=== PATIENT | male | born 1965 ===

== ENCOUNTER 2016-07-23 21:22 | Emergency (ER) | payer MEDICAID ==
[2016-07-23 22:06] VITALS: BP 112/73; PULSE 92; RESP 20; TEMP 98.7; O2SAT 97
--- NOTE | 2016-07-23 23:39 | C.PDOC ---
History Of Present Illness 50 year old patient, with a past medical history of hyperlipidemia, presents to the ED complaining of sore throat and productive cough for the last few days. Patient also notes he has pain when swallowing. Patient denies any fever, vomiting, or abdominal pain. Time Seen by Provider: 07/23/16 23:04 Chief Complaint (Nursing): Flu-like Symptoms History Per: Patient History/Exam Limitations: no limitations Onset/Duration Of Symptoms: Other (1 week) Current Symptoms Are (Timing): Still Present Location Of Pain: Throat Sick Contacts (Context): None Associated Symptoms: Sore Throat, Cough Severity: Mild Pain Scale Rating Of: 3 Recent travel outside of the [place]: No Past Medical History Reviewed: Historical Data, Nursing Documentation, Vital Signs Vital Signs: Last Vital Signs Temp 98.7 F 07/23/16 21:58 Pulse 92 H 07/23/16 21:58 Resp 20 07/23/16 21:58 BP 112/73 07/23/16 21:58 Pulse Ox 97 07/23/16 23:53 - Medical History PMH: Hyperlipidemia Family History: States: Unknown Family Hx - Social History Hx Alcohol Use: No Hx Substance Use: No - Immunization History Hx Influenza Vaccination: Yes Review Of Systems Except As Marked, All Systems Reviewed And Found Negative. Constitutional: Negative for: Fever ENT: Positive for: Throat Pain Respiratory: Positive for: Cough Gastrointestinal: Negative for: Vomiting, Abdominal Pain Physical Exam - Physical Exam Appears: Non-toxic, No Acute Distress Skin: Warm, Dry Head: Atraumatic, Normacephalic Eye(s): bilateral: Normal Inspection, PERRL, EOMI Ear(s): Bilateral: Normal Nose: Normal Oral Mucosa: Moist Throat: Normal, No Erythema, No Exudate Neck: Normal ROM, Supple Cardiovascular: Rhythm Regular Respiratory: Normal Breath Sounds, No Rales, No Rhonchi, No Wheezing ED Course And Treatment O2 Sat by Pulse Oximetry: 97 (RA) Pulse Ox Interpretation: Normal Progress Note: Patient is resting comfortably with no wheezing, chest pain, or retractions. Oxygen saturation is at 97%. Patient is alert and oriented x 3. Patient was advised to follow up with PMD. Return if symptoms worsen. Disposition Counseled Patient/Family Regarding: Diagnosis, Need For Followup - Disposition Referrals: PMD, your doctor [Other] Disposition: HOME/ ROUTINE Disposition Time: 23:37 Condition: STABLE Additional Instructions: Increase PO fluids Take meds as directed Follwo up with PMD Return to ER if worse Prescriptions: Benzonatate [Tessalon Perles] 100 mg PO TID #20 sgl Azithromycin [Zithromax] 250 mg PO DAILY #6 tab Cetirizine HCl [Zyrtec] 10 mg PO DAILY #20 capsule Instructions: Acute Bronchitis (ED) - Clinical Impression Clinical Impression: Bronchitis - PA / RESPIRATORY SCIENTIST / Resident Statement MD/DO has reviewed & agrees with the documentation as recorded. - Scribe Statement The provider has reviewed the documentation as recorded by the Scribe Zarina Mai All medical record entries made by the Scribe were at my direction and personally dictated by me. I have reviewed the chart and agree that the record accurately reflects my personal performance of the history, physical exam, medical decision making, and the department course for this patient. I have also personally directed, reviewed, and agree with the discharge instructions and disposition.
== END 2016-07-23 23:42 | disposition home or self-care (01) ==
LOC: C.ER 21:22
DX: J40 Bronchitis, not specified as acute or chronic (principal)

== ENCOUNTER 2016-12-16 15:35 | Emergency (ER) | payer MEDICAID ==
[2016-12-16 15:45] VITALS: TEMP 98.4; O2SAT 97
[2016-12-16] MEDS ORDERED: Sodium Chloride 0.9% 1,000 ML IV ONE (16:14)
--- NOTE | 2016-12-16 16:22 | C.PDOC ---
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 Patient reports he was prescribed Percocet and liquid diet for pain and treatment. Since then patient complains of having difficulty passing bowel movement. He has not had a normal stool for the past week. Patient describe his stool yesterday being as a "small hard rock" and has mild abdominal discomfort. Patient denies chest pain, shortness of breath, headache, fever, chills, cough, nausea, vomiting, dysuria, hematuria, frequency, flank pain, or other complaints. Time Seen by Provider: 12/16/16 16:08 Chief Complaint (Nursing): Abdominal Pain History Per: Patient History/Exam Limitations: no limitations Current Symptoms Are (Timing): Still Present Radiation Of Pain To:: None Associated Symptoms: Other (changes in bowel and stool ). denies: Fever, Nausea , Vomiting Last Bowel Movement: Yesterday Past Medical History Reviewed: Historical Data, Nursing Documentation, Vital Signs Vital Signs: Last Vital Signs Temp 98.4 F 12/16/16 15:40 Pulse 87 12/16/16 19:45 Resp 16 12/16/16 19:45 BP 124/81 12/16/16 19:45 Pulse Ox 97 12/16/16 19:47 - Medical History PMH: HTN, Hyperlipidemia Family History: States: Unknown Family Hx - Social History Hx Alcohol Use: No Hx Substance Use: No - Immunization History Hx Influenza Vaccination: Yes Review Of Systems Constitutional: Negative for: Fever Cardiovascular: Negative for: Chest Pain Respiratory: Negative for: Shortness of Breath Gastrointestinal: Positive for: Other (changes is stool and bowel habits). Negative for: Nausea, Vomiting, Abdominal Pain Genitourinary: Negative for: Dysuria, Frequency Neurological: Negative for: Headache Physical Exam - Physical Exam Appears: Well, Non-toxic, No Acute Distress Skin: Normal Color, Warm, Dry Head: Atraumatic, Normacephalic Eye(s): bilateral: Normal Inspection, PERRL, EOMI Nose: Normal Oral Mucosa: Dry Lips: Normal Appearing Throat: Normal Neck: Other (swelling and tenderness along the right mandible) Cardiovascular: Rhythm Regular Respiratory: Normal Breath Sounds Gastrointestinal/Abdominal: Normal Exam, Bowel Sounds (normal), Soft, No Tenderness, No Guarding, No Rebound Rectal: Other (hard dry stool manually disimpacted from vault) Back: Normal Inspection Extremity: Normal ROM Neurological/Psych: Oriented x3, Normal Speech, Normal Cognition, Normal Motor Gait: Steady ED Course And Treatment - Laboratory Results Result Diagrams: 12/16/16 17:14 12/16/16 16:49 Lab Interpretation: Abnormal (WBC 15.3, BUN 20, Cr 1.1) O2 Sat by Pulse Oximetry: 97 (room air) Pulse Ox Interpretation: Normal - Other Rad obstructive series X-Ray: Viewed By Me Interpretation: Nonspecific bowel gas pattern. Increased volume of stool in descending colon. Progress Note: Patient had little results from both a fleets and a tap water soap suds enema. He feels better and does not feel the urge to defecate. 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 Plan: -- Labs -- Urinalysis -- Fleet Enema and Sodium Chloride -- Reassess and disposition Disposition Counseled Patient/Family Regarding: Studies Performed, Diagnosis, Need For Followup, Rx Given - Disposition Referrals: Katia Ann MD [Staff Provider] - Disposition: HOME/ ROUTINE Disposition Time: 20:09 Condition: IMPROVED Additional Instructions: Encourage plenty of fluids. You can try taking Metamucil or Senokot as well as prune juice for constipation. Stop taking the Percocet. Prescriptions: Tramadol HCl [Ultram] 50 mg PO QID PRN #20 tablet PRN Reason: Pain, Severe (8-10) Instructions: Constipation (ED) Forms: [employer] (Dutch) - Clinical Impression Clinical Impression: Constipation - Scribe Statement The provider has reviewed the documentation as recorded by the Scribe 12/16/2016 Scribe Attestation: Adriana Sanchez MD Scribe Attestation: All medical record entries made by the Scribe were at my direction and personally dictated by me. I have reviewed the chart and agree that the record accurately reflects my personal performance of the history, physical exam, medical decision making, and the department course for this patient. I have also personally directed, reviewed, and agree with the discharge instructions and disposition.
[2016-12-16 17:00] LABS: CHLORIDE 96 mmol/L (98-107)
[2016-12-16 17:01] LABS: POTASSIUM 4.5 mmol/L (3.6-5.2); SODIUM 136 mmol/L (132-148)
[2016-12-16 17:03] LABS: ALB/GLOB RATIO 1.1 (1.0-2.1); ALKALINE PHOSPHATASE 94 U/L (38-126); ALT/SGPT 56 U/L (21-72); AST/SGOT 20 U/L (17-59); BILIRUBIN,TOTAL 0.8 mg/dL (0.2-1.3); BLOOD UREA NITROGEN 20 mg/dL (9-20); CARBON DIOXIDE 23 mmol/L (22-30); GFR AFRICAN-AMERICAN > 60; TOTAL PROTEIN 7.9 g/dL (6.3-8.3)
[2016-12-16 17:04] LABS: CALCIUM 9.5 mg/dl (8.6-10.4); GLUCOSE,RANDOM 130 mg/dL (75-110)
[2016-12-16 17:19] LABS: BASO # 0.1 K/uL (0.0-0.2); BASO % 0.4 % (0.0-2.0); EOS % 0.2 % (0.0-4.0); LYMPH # 2.1 K/uL (1.0-4.3); LYMPH % 13.8 % (20.0-40.0); MEAN CELL VOLUME 82.4 fL (80.0-94.0); MEAN CORPUSCULAR HEMOGLOBIN 27.9 pg (27.0-31.0); MEAN CORPUSCULAR HGB CONC 33.8 g/dL (33.0-37.0); MEAN PLATELET VOLUME 8.4 fL (7.2-11.7); MONO # 1.1 K/uL (0.0-0.8); MONO % 6.9 % (0.0-10.0); RED CELL DISTRIBUTION WIDTH 15.6 % (11.5-14.5); WHITE BLOOD COUNT 15.3 K/uL (4.8-10.8)
[2016-12-16 18:38] LABS: RBC URINE 2 /hpf (0-3); URINE BACTERIA OCC (<OCC); URINE BILIRUBIN NEGATIVE (NEGATIVE); URINE BLOOD NEGATIVE (NEGATIVE); URINE COLOR Yellow (YELLOW); URINE GLUCOSE (UA) NORMAL (Normal); URINE KETONE 1+ mg/dL (NEGATIVE); URINE LEUKOCYTE ESTERASE NEG Leu/uL (Negative); URINE PROTEIN NEGATIVE (NEGATIVE); URINE UROBILINOGEN NORMAL mg/dL (0.2-1.0); WBC URINE 2 /hpf (0-5)
[2016-12-16 19:56] VITALS: BP 124/81; PULSE 87; RESP 16
--- NOTE | 2016-12-17 11:04 | RAD ---
PROCEDURE: Radiographs of the chest and abdomen (obstructive series) HISTORY: constipation COMPARISON: None available. FINDINGS: CHEST: Heart size appears within normal limits. No focal consolidation. No pleural effusion. No pneumothorax. Please note that chest x-ray has limited sensitivity for the detection of pulmonary masses. ABDOMEN AND PELVIS: Nonobstructive bowel gas pattern. No definite free air. Moderate constipation. Mild degenerative changes. IMPRESSION: Moderate constipation.
== END 2016-12-16 20:49 | disposition home or self-care (01) ==
LOC: C.ER 15:35
DX: K59.00 Constipation, unspecified (principal)
CPT/HCPCS: 74022; 80053; 81001; 82948; 85025; 96360; 99285; J7040

== ENCOUNTER 2017-10-15 07:05 | Emergency (ER) | payer MEDICAID ==
[2017-10-15 07:11] VITALS: BMI 33.5
[2017-10-15 07:21] VITALS: BP 148/83; PULSE 107; RESP 20; TEMP 98; O2SAT 98
--- NOTE | 2017-10-15 07:29 | C.PDOC ---
History Of Present Illness 52 years old male with Hx of NIDDM present to ED for evaluation of right foot swelling and redness gradually developed for past few days. Patient states pain is localized over foot area and it worsens with weight-bearing. 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 Otherwise, pt denies known direct trauma, injury, fever, chills, sore throat, CP, SOB, dyspnea, cough, denies weakness, sensory or vascular deficits to right foot. Ambulate to ED for evaluation, not in any apparent distress. Time Seen by Provider: 10/15/17 07:13 Chief Complaint (Nursing): Lower Extremity Problem/Injury History Per: Patient History/Exam Limitations: no limitations Onset/Duration Of Symptoms: Days (1) Current Symptoms Are (Timing): Still Present Recent travel outside of the [place]: No Past Medical History Reviewed: Historical Data, Nursing Documentation, Vital Signs Vital Signs: Last Vital Signs Temp 98.0 F 10/15/17 07:10 Pulse 107 H 10/15/17 07:10 Resp 20 10/15/17 07:10 BP 148/83 10/15/17 07:10 Pulse Ox 98 10/15/17 08:59 - Medical History PMH: HTN, Hyperlipidemia Family History: States: Unknown Family Hx - Social History Hx Alcohol Use: No Hx Substance Use: No - Immunization History Hx Influenza Vaccination: Yes Review Of Systems Constitutional: Negative for: Fever, Chills Musculoskeletal: Positive for: Foot Pain (Right foot pain associated with swelling and redness) Skin: Negative for: Rash Neurological: Negative for: Weakness, Numbness Physical Exam - Physical Exam Appears: Well, Non-toxic, No Acute Distress Skin: Warm, Dry, No Rash, No Ecchymosis Head: Normacephalic Eye(s): bilateral: PERRL Oral Mucosa: Moist Throat: No Erythema Neck: Trachea Midline, Supple Chest: Symmetrical, No Deformity, No Tenderness Cardiovascular: Rhythm Regular, No Murmur Respiratory: No Decreased Breath Sounds, No Accessory Muscle Use, No Stridor, No Wheezing Extremity: Normal ROM (Right ankle and foot, no neurovascular deficits.), No Tenderness, No Calf Tenderness (Right), Capillary Refill (less than 2sec to Right foot), No Deformity, Swelling (diffuse edema dorsal aspect Right foot), Other (mild erythema dorsal aspect Right foot localized over tarasl boned. No peripheral streaking. NO palpable deformity.) Neurological/Psych: Oriented x3 (Awake and alert), Normal Speech, Normal Motor, Normal Sensation, Normal Reflexes Gait: Steady ED Course And Treatment O2 Sat by Pulse Oximetry: 98 (RA) Pulse Ox Interpretation: Normal - Other Rad Right foot X-Ray: Interpreted by Me, Viewed By Me Interpretation: (+) mild DJD, no acute fx or dislocation Right Foot X-Ray X-Ray: Viewed By Me, Read By Radiologist Interpretation: PROCEDURE: Right Foot Radiographs. HISTORY: pain. COMPARISON : None. FINDINGS: BONES: Normal. No fracture. JOINTS: Minimal joint-space narrowing and trace osseous hypertrophic changes at 1st metatarsal-phalangeal joint and 1st tarsal metatarsal joint. SOFT TISSUES: Normal. OTHER FINDINGS: None. IMPRESSION: Minimal arthrosis. No fracture or lytic lesion seen Progress Note: Administered Ultram. Ordered X-Ray of right foot. On re- evaluation, pt is afebrile, hemodynamicaly stable. Non-toxic.AMbulatory in ED. NEck: Supple, (-) midline tenderness. Lungs: CTA B/L, BS equal B/L. RLE: exam c/w edema and mild erythema dorsal aspect Right foot. NO proximal streaking. No palpable defomrity. FAROM, no neurovascular deficits. Neurologicaly intact. Pt has clinical findings c/w Right foot arthralgia r/o cellulitis. Pt advised. ref. to f/u with PMD in 2-3 days for re-evaluation. return to ED if any worsening or new changes. Disposition Counseled Patient/Family Regarding: Studies Performed, Diagnosis, Need For Followup, Rx Given - Disposition Referrals: Katia Ann MD [Staff Provider] - Disposition: HOME/ ROUTINE Disposition Time: 07:40 Condition: STABLE Additional Instructions: Keep foot elevated, ice, avoid prolong walking for 1 week Take medication as prescribed Follow up with PMD, Podiatry in 2-3 days for re-evaluation. Return to ED if any worsening or new changes. Prescriptions: Amoxicillin/Clavulanate [Augmentin 875 MG-125 MG] 1 tab PO BID #14 tab Ibuprofen [Motrin Tab] 600 mg PO TID #20 tab traMADol [Ultram] 50 mg PO TID #7 tab Instructions: Osteoarthritis, Cellulitis (Skin Infection), Adult (DC) Forms: [employer] (Korean) - Clinical Impression Clinical Impression: Arthritis, Cellulitis - PA / SAMPLE WEAVER / Resident Statement MD/DO has reviewed & agrees with the documentation as recorded. - Scribe Statement The provider has reviewed the documentation as recorded by the Anahi Au All medical record entries made by the [employer] were at my direction and personally dictated by me. I have reviewed the chart and agree that the record accurately reflects my personal performance of the history, physical exam, medical decision making, and the department course for this patient. I have also personally directed, reviewed, and agree with the discharge instructions and disposition.
[2017-10-15] MEDS ORDERED: Amoxicillin-Clav 875-125 mg Tab PO STA (08:01)
[2017-10-15] MEDS ORDERED: Amoxicillin-Clav 875-125 mg Tab PO ONE (08:17)
--- NOTE | 2017-10-15 08:47 | RAD ---
PROCEDURE: Right Foot Radiographs. HISTORY: pain COMPARISON: None. FINDINGS: BONES: Normal. No fracture. JOINTS: Minimal joint-space narrowing and trace osseous hypertrophic changes at 1st metatarsal-phalangeal joint and 1st tarsal metatarsal joint SOFT TISSUES: Normal. OTHER FINDINGS: None. IMPRESSION: Minimal arthrosis. No fracture or lytic lesion seen
== END 2017-10-15 08:23 | disposition home or self-care (01) ==
LOC: C.ER 07:05
DX: M19.071 Primary osteoarthritis, right ankle and foot (principal); L03.90 Cellulitis, unspecified; E11.9 Type 2 diabetes mellitus without complications; E78.5 Hyperlipidemia, unspecified; I10 Essential (primary) hypertension